=== PATIENT | male | born 1960 | race Caucasian/White ===

== ENCOUNTER 2017-09-21 08:16 | Day surgery (SDC) | payer OTHER ==
[~2017-09-21] VITALS: Ht 188 cm; Wt 104.5 kg
[2017-09-21] MEDS ORDERED: SODIUM CHLORIDE 0.9% 1,000 ML IV SCH ×2 (08:57→09:00)
[2017-09-21 09:00] VITALS: BP 135/91
[2017-09-21] MEDS ORDERED: RIVA20TA PO (09:06)
[2017-09-21] MEDS ORDERED: DIGO125T PO (09:06)
[2017-09-21] MEDS ORDERED: DILT120C11 PO (09:06)
[2017-09-21] MEDS ORDERED: AMIO200T42 PO (09:06)
[2017-09-21] MEDS ORDERED: FENTANYL PF 250 MCG/5ML ONE (09:17)
[2017-09-21] MEDS ORDERED: MIDAZOLAM 1 MG/ML, 2ML ONE (09:17)
[2017-09-21] MEDS ORDERED: LIDOCAINE GEL 2%, 5ML ONE (09:21)
[2017-09-21] MEDS ORDERED: SUCCINYLCHOLINE 20 MG/ML, 10ML ONE (09:22)
[2017-09-21] MEDS ORDERED: PROPOFOL 10 MG/ML, 20ML ONE (09:22)
[2017-09-21 09:46] LABS: T4 (THYROXINE) 10.6 mcg/dL (4.5-12.1)
[2017-09-21 09:55] LABS: CHOL/HDL RATIO 5.2; LDL/HDL RATIO 3.1 (0.5-3.0); THYROID STIMULATING HORMONE 6.43 mIU/L (0.358-3.740)
[2017-09-21] MEDS ORDERED: DEXAMETHASONE 4 MG/ML, 5ML ONE (10:17)
[2017-09-21] MEDS ORDERED: ONDANSETRON 2MG/ML, 2ML ONE (10:17)
[2017-09-21] MEDS ORDERED: ROCURONIUM 10 MG/ML,10ML ONE (10:17)
[2017-09-21] MEDS ORDERED: EPHEDRINE 50 MG/ML, 1ML ONE (10:42)
[2017-09-21] MEDS ORDERED: ACETAMINOPHEN 325 MG TABLET PO PRN ×2 (11:30→12:00)
[2017-09-21] MEDS ORDERED: OXYcodone 5 MG/5 ML ORAL.SOL UDC PO PRN (12:00)
[2017-09-21] MEDS ORDERED: PROMETHAZINE 25 MG/ML, 1ML IV PRN (12:00)
[2017-09-21] MEDS ORDERED: ONDANSETRON ODT 8 MG PO PRN (12:00)
[2017-09-21] MEDS ORDERED: ONDANSETRON 2MG/ML, 2ML IV PRN (12:00)
[2017-09-21] MEDS ORDERED: ALBUTEROL SULFATE 2.5 MG/3 ML NPPB PRN (12:00)
[2017-09-21] MEDS ORDERED: HYDROmorphone 1 MG/ML, 1ML IV PRN (12:00)
[2017-09-21] MEDS ORDERED: MIDAZOLAM 1 MG/ML, 2ML IV PRN (12:00)
[2017-09-21] MEDS ORDERED: FENTANYL PF 100 MCG/2ML IV PRN (12:00)
[2017-09-21] MEDS ORDERED: hydrALAzine 20 MG/ML, 1ML IV PRN (12:00)
[2017-09-21] MEDS ORDERED: LABETALOL 5MG/ML, 20ML IV PRN (12:00)
[2017-09-21] MEDS ORDERED: MEPERIDINE/PF 25MG/0.5ML IVPush PRN (12:00)
[2017-09-21] MEDS ORDERED: PROMETHAZINE 12.5 MG SUPP PR PRN (12:00)
[2017-09-21] MEDS ORDERED: LORazepam 2 MG/ML, 1ML IVPush PRN (12:00)
== END 2017-09-21 17:48 | disposition home or self-care (01) ==
LOC: CACL 08:16 → 5SO 12:31 → CACL 17:48
PROVIDERS: ATTEND Internal Medicine Cardiovascular Disease
DX: I48.91 Unspecified atrial fibrillation (principal); I48.92 Unspecified atrial flutter; C46.7 Kaposi's sarcoma of other sites; I10 Essential (primary) hypertension; M41.9 Scoliosis, unspecified; Z79.899 Other long term (current) drug therapy; Z98.890 Other specified postprocedural states
CPT/HCPCS: 36415; 80061; 84436; 84443; 84481; 93312; 93321; 93325; J0330; J1100; J2250; J2405; J2704; J3010; 93613; 93621; 93653; C1731; C1894; C1730; C2630